=== PATIENT | female | born 1970 | race Two or more races ===

== ENCOUNTER → 2017-03-06 | Emergency (ER) | payer OTHER ==
[~2017-03-06] VITALS: Ht 172.7 cm; Wt 87.1 kg
[~2017-03-06] MED LIST: ABILIFY10 MG PO; CARAFATE1 G PO; CIPROFLOXACIN750 MG PO; CLONAZEPAM1 MG PO; CYMBALTA20 MG PO; CYMBALTA30 MG PO; CYMBALTA60 MG PO; DALMANE30 MG PO; DOCUSATE SODIU100 MG PO; LAMICTAL25 MG PO; LOPRESSOR25 MG PO; LYRICA150 MG PO; MAXIMUM DAILY1 EACH PO; METHYLPRED4 MG/DOSE- PO; NEURONTIN PO; NORFLEX100MG PO; PERCOCET 5-3251 EACH PO; PERCOCET 5/3251 TAB PO; PREMPRO 0.3 MG1 EACH PO; PREVACID30 MG PO; SINGULAIR 10MG10 MG PO; SYNTHROID50 MCG PO; VISTARIL25 MG PO; VITAMIN D3 COM1 EACH PO; WELLBUTRIN SR150 MG PO
== END | disposition home or self-care (01) ==
LOC: ER 19:24
DX: K52.9 Noninfective gastroenteritis and colitis, unspecified (principal); N39.0 Urinary tract infection, site not specified

== ENCOUNTER 2017-07-05 11:15 | Inpatient (IN) | payer OTHER ==
[~2017-07-05] VITALS: Ht 172.7 cm; Wt 83.9 kg
[2017-07-13] MEDS ORDERED: COLACE100 MG PO (11:49)
[2017-07-13] MEDS ORDERED: CLONAZEPAM1 MG PO (11:49)
[2017-07-13] MEDS ORDERED: PERCOCET 5-3251 EACH PO (11:49)
== END 2017-07-14 13:00 | disposition home or self-care (01) | DRG 455 ==
LOC: O/R 07-13 04:51 → SURH 07-13 11:15 → PED 07-13 15:21
PROVIDERS: Orthopaedic Surgery Orthopaedic Surgery of the Spine
PROC: 0RG2071 Fusion of 2 or more Cervical Vertebral Joints with Autologous Tissue Substitute, Posterior Approach, Posterior Column, Open Approach (ICD-10-PCS; 2017-07-13)
PROC: 0RT30ZZ Resection of Cervical Vertebral Disc, Open Approach (ICD-10-PCS; 2017-07-13)
PROC: 07DS3ZZ Extraction of Vertebral Bone Marrow, Percutaneous Approach (ICD-10-PCS; 2017-07-13)
PROC: 0RG20A0 Fusion of 2 or more Cervical Vertebral Joints with Interbody Fusion Device, Anterior Approach, Anterior Column, Open Approach (ICD-10-PCS; principal; 2017-07-13 13:00)
DX: M47.22 Other spondylosis with radiculopathy, cervical region (principal); M50.11 Cervical disc disorder with radiculopathy, high cervical region; I10 Essential (primary) hypertension; E03.8 Other specified hypothyroidism

== ENCOUNTER 2017-10-07 21:16 | Emergency (ER) | payer OTHER ==
[~2017-10-07] VITALS: Ht 172.7 cm; Wt 81.6 kg
[~2017-10-07 21:16] MED LIST changes: +COLACE100 MG PO
[2017-10-07] MEDS ORDERED: LOPRESSOR25 MG (21:24)
[2017-10-07] MEDS ORDERED: SYNTHROID50 MCG (21:24)
[2017-10-07] MEDS ORDERED: SINGULAIR4 M1 (21:25)
== END 2017-10-08 02:58 | disposition left against medical advice (07) ==
LOC: ER 21:16
DX: M54.2 Cervicalgia (principal); M54.89 Other dorsalgia

== ENCOUNTER 2018-02-14 12:11 | Emergency (ER) | payer OTHER ==
[~2018-02-14] VITALS: Ht 172.7 cm; Wt 79.4 kg
[~2018-02-14 12:11] MED LIST changes: +LOPRESSOR25 MG; +SINGULAIR4 M1; +SYNTHROID50 MCG
[2018-02-14] MEDS ORDERED: MEDROLPACK PO (16:04)
[2018-02-14] MEDS ORDERED: NORFLEX100MG PO (16:04)
[2018-02-14] MEDS ORDERED: PERCOCET 5-3251 EACH PO (16:09)
== END 2018-02-14 16:51 | disposition home or self-care (01) ==
LOC: ER 12:11
DX: M54.5 Low back pain (principal); M54.2 Cervicalgia

== ENCOUNTER 2018-08-01 18:54 | Emergency (ER) | payer OTHER ==
[~2018-08-01] VITALS: Ht 172.7 cm; Wt 79.4 kg
[~2018-08-01 18:54] MED LIST changes: +MEDROLPACK PO
== END 2018-08-01 23:55 | disposition home or self-care (01) ==
LOC: ER 18:54
DX: G43.809 Other migraine, not intractable, without status migrainosus (principal); R11.2 Nausea with vomiting, unspecified

== ENCOUNTER 2018-10-27 23:34 | Emergency (ER) | payer OTHER ==
[~2018-10-27] VITALS: Ht 172.7 cm; Wt 79.4 kg
== END 2018-10-28 09:09 ==
LOC: ER 23:34
DX: K52.89 Other specified noninfective gastroenteritis and colitis (principal); E86.0 Dehydration; G43.109 Migraine with aura, not intractable, without status migrainosus

== ENCOUNTER 2018-11-05 11:34 | Emergency (ER) | payer OTHER ==
[~2018-11-05] VITALS: Ht 172.7 cm; Wt 90.7 kg
== END 2018-11-05 21:10 | disposition home or self-care (01) ==
LOC: ER 11:34
DX: R51 Headache (principal)

== ENCOUNTER 2018-11-14 16:08 | Inpatient (IN) | payer OTHER ==
[~2018-11-14] VITALS: Ht 172.7 cm; Wt 86.2 kg
== END 2018-11-17 13:11 | disposition home or self-care (01) | DRG 390 ==
LOC: ER 16:08 → SEC-K 22:36 → SURG 22:36
PROVIDERS: ADMIT Surgery
PROC: BW21ZZZ Computerized Tomography (CT Scan) of Abdomen and Pelvis (ICD-10-PCS; principal; 2018-11-14)
DX: K56.690 Other partial intestinal obstruction (principal); E86.0 Dehydration; E03.8 Other specified hypothyroidism

== ENCOUNTER 2019-04-28 12:42 | Emergency (ER) | payer OTHER ==
[~2019-04-28] VITALS: Ht 180.3 cm; Wt 95.7 kg
[2019-04-28] MEDS ORDERED: PROTONIX40 MG (13:23)
[2019-04-28] MEDS ORDERED: ABILIFY10 MG (13:23)
[2019-04-28] MEDS ORDERED: WELLBUTRIN XL300 MG (13:24)
[2019-04-28] MEDS ORDERED: LAMICTAL100 M1 (13:24)
[2019-04-28] MEDS ORDERED: CYMBALTA60 MG (13:24)
[2019-04-28] MEDS ORDERED: NASAL MIST126 ML (13:25)
[2019-04-28] MEDS ORDERED: CANDESARTAN CILE8 MG (13:26)
[2019-04-28] MEDS ORDERED: LYRICA150 MG (13:26)
[2019-04-28] MEDS ORDERED: METFORMIN HCL500 M3 (13:30)
== END 2019-04-28 19:50 | disposition home or self-care (01) ==
LOC: ER 12:42
DX: N20.1 Calculus of ureter (principal); N39.0 Urinary tract infection, site not specified

== ENCOUNTER 2020-10-17 05:40 | Emergency (ER) | payer OTHER ==
[~2020-10-17] VITALS: Ht 172.7 cm; Wt 83.9 kg
[~2020-10-17 05:40] MED LIST changes: +ABILIFY10 MG; +CANDESARTAN CILE8 MG; +CYMBALTA60 MG; +LAMICTAL100 M1; +LYRICA150 MG; +METFORMIN HCL500 M3; +NASAL MIST126 ML; +PROTONIX40 MG; +WELLBUTRIN XL300 MG
== END 2020-10-17 11:07 | disposition home or self-care (01) ==
LOC: ER 05:40
DX: M79.18 Myalgia, other site (principal)

== ENCOUNTER 2024-01-10 09:45 | Inpatient (IN) | payer OTHER ==
[~2024-01-10] VITALS: Ht 177.8 cm; Wt 89.4 kg
[2024-01-16] MEDS ORDERED: PERCOCET 5-3251 EACH PO (11:43)
[2024-01-16] MEDS ORDERED: COLACE100 MG PO (11:43)
[2024-01-16] MEDS ORDERED: MEDROLPACK PO (11:43)
[2024-01-16] MEDS ORDERED: AMOX-CLAV 875-1 EACH PO (11:43)
[2024-01-16] MEDS ORDERED: ZOFRAN8 MG PO (11:43)
[2024-01-16] MEDS ORDERED: NEURONTIN800 MG PO (11:44)
[2024-01-16] MEDS ORDERED: GABAPENTIN100 M2 PO (11:44)
[2024-01-16] MEDS ORDERED: 0.9 % SODIUM CHLORIDE 1,000 ML IV SCH (12:00)
[2024-01-16] MEDS ORDERED: ACETAMINOPHEN 500 MG GEL..CAP PO SCH (12:00)
[2024-01-16] MEDS ORDERED: ENALAPRILAT DIHYDRATE 1.25 MG/ML VIAL IV PRN (12:00)
[2024-01-16] MEDS ORDERED: PROMETHAZINE HCL 50 MG/ML AMPUL IM PRN (12:00)
[2024-01-16] MEDS ORDERED: MORPHINE SULFATE 4 MG,MORPHINE SULFATE 2 MG IV SCH (13:00)
[2024-01-16] MEDS ORDERED: DOCUSATE SODIUM 100MG CAP PO SCH (13:00)
[2024-01-16] MEDS ORDERED: CEFAZOLIN SODIUM 1,000 MG VIAL IV ONE (15:15)
[2024-01-16] MEDS ORDERED: VANCOMYCIN HCL 1,000 MG VIAL IV ONE (15:15)
[2024-01-16] MEDS ORDERED: METHYLPREDNISOLONE ACETATE 80 MG/ML VIAL IU ONE (15:30)
[2024-01-16] MEDS ORDERED: METHYLPREDNISOLONE SOD SUCC 125 MG VIAL IV ONE ×2 (15:30)
[2024-01-16] MEDS ORDERED: VANCOMYCIN HCL 1,000 MG VIAL IR ONE (15:30)
[2024-01-16] MEDS ORDERED: MORPHINE SULFATE 4 MG/ML VIAL IV ONE (16:15)
[2024-01-16] MEDS ORDERED: FAMOtidine 20 MG TABLET PO SCH (17:00)
[2024-01-16] MEDS ORDERED: Pregabalin 50 MG CAPSULE PO SCH (17:00)
[2024-01-16] MEDS ORDERED: METHYLPREDNISOLONE SOD SUCC 125 MG VIAL IV SCH (17:00)
[2024-01-16] MEDS ORDERED: CEFAZOLIN SODIUM 1,000 MG in 0.9 % SODIUM CHLORIDE 50 ML IV SCH (17:00)
[2024-01-16] MEDS ORDERED: MONTELUKAST SODIUM 10 MG TABLET PO SCH (17:00)
[2024-01-16 19:49] VITALS: BP 148/74; O2SAT 100
[2024-01-16] MEDS ORDERED: TEMAZEPAM 15 MG CAPSULE PO SCH (21:00)
[2024-01-16] MEDS ORDERED: VANCOMYCIN HCL 1,000 MG VIAL IV SCH (21:00)
[2024-01-16] MEDS ORDERED: QUETIAPINE FUMARATE 100 MG TABLET PO SCH (21:00)
[2024-01-17] MEDS ORDERED: SODIUM CHLORIDE 0.45 % 1,000 ML IV SCH
[2024-01-17 00:22] VITALS: BP 138/83; O2SAT 99
[2024-01-17] MEDS ORDERED: LEVOTHYROXINE SODIUM 25 MCG TABLET PO SCH (06:00)
[2024-01-17] MEDS ORDERED: OxyCODONE HCL/APAP UD (PERCOCET) PO PRN (06:01)
[2024-01-17 06:09] LABS: HEMATOCRIT 37.5 % (36.0-45.00); HEMOGLOBIN 12.1 g/dL (12.0-15.00); MEAN CELL VOLUME 81.8 fL (80.00-100.00); MEAN CORPUSCULAR HEMOGLOBIN 26.3 pg (27.00-32.0); MEAN CORPUSCULAR HGB CONC 32.1 g/dl (32.0-36.0); PLATELET COUNT 328 K/uL (150-450); RED BLOOD COUNT 4.59 M/uL (4.00-6.00)
[2024-01-17 06:35] LABS: RED CELL DISTRIBUTION WIDTH 17.7 % (11.5-14.5)
[2024-01-17 06:50] LABS: CALCIUM 9.5 mg/dL (8.5-10.1); CREATININE SERUM 0.91 mg/dL (0.55-1.02); GFR 64.18
[2024-01-17 07:02] LABS: POTASSIUM 6.14 mEq/L (3.5-5.1)
[2024-01-17 07:52] VITALS: BP 101/53; O2SAT 97
[2024-01-17] MEDS ORDERED: Duloxetine HCl 60 MG CAPSULE.DR PO SCH (09:00)
[2024-01-17] MEDS ORDERED: MetFORMIN HCL 500 MG TABLET PO SCH (09:00)
[2024-01-17] MEDS ORDERED: BUPROPION HCL 150 MG TABLET.SA PO SCH (09:00)
[2024-01-17 12:43] VITALS: O2SAT 95
[2024-01-17] MEDS ORDERED: SODIUM POLYSTYRENE SULFONATE 30G/8 TSP PO SCH (13:00)
[2024-01-17 17:00] VITALS: BP 130/63; O2SAT 96
[2024-01-17 21:53] VITALS: O2SAT 100
[2024-01-18] VITALS: BP 119/61; O2SAT 97
[2024-01-18 02:12] VITALS: O2SAT 95
[2024-01-18 08:00] VITALS: BP 102/55; O2SAT 96
[2024-01-18 08:11] LABS: ALBUMIN 3.1 gm/dL (3.4-5.0); BILIRUBIN TOTAL 0.34 mg/dL (0.3-1.2); CALCIUM 9.1 mg/dL (8.5-10.1); CREATININE SERUM 1.01 mg/dL (0.55-1.02); GFR 56.91; POTASSIUM 4.17 mEq/L (3.5-5.1); TOTAL PROTEIN 6.1 gm/dL (6.4-8.2)
[2024-01-18 08:55] VITALS: O2SAT 96
== END 2024-01-18 11:32 | disposition home or self-care (01) | DRG 428 ==
LOC: O/R 01-16 08:48 → SURG 01-16 08:48 → SURH 01-16 12:15 → SURG 01-16 17:25 → SURH 01-17 13:25
PROVIDERS: Internal Medicine; ADMIT Orthopaedic Surgery Orthopaedic Surgery of the Spine; ATTEND Orthopaedic Surgery Orthopaedic Surgery of the Spine
PROC: 0SG1071 Fusion of 2 or more Lumbar Vertebral Joints with Autologous Tissue Substitute, Posterior Approach, Posterior Column, Open Approach (ICD-10-PCS; 2024-01-16)
PROC: 0ST20ZZ Resection of Lumbar Vertebral Disc, Open Approach (ICD-10-PCS; 2024-01-16)
PROC: 07DR0ZZ Extraction of Iliac Bone Marrow, Open Approach (ICD-10-PCS; 2024-01-16)
PROC: 4A1104G Monitoring of Peripheral Nervous Electrical Activity, Intraoperative, Open Approach (ICD-10-PCS; 2024-01-16)
PROC: XRGC0R7 Fusion of 2 or more Lumbar Vertebral Joints using Custom-Made Anatomically Designed Interbody Fusion Device, Open Approach, New Technology Group 7 (ICD-10-PCS; principal; 2024-01-16 15:30)
DX: M48.062 Spinal stenosis, lumbar region with neurogenic claudication (principal); M51.360 Other intervertebral disc degeneration, lumbar region with discogenic back pain only